=== PATIENT | male | born 1945 | race Caucasian/White ===

== ENCOUNTER 2021-08-21 13:05 | Emergency (ER) | payer OTHER ==
[~2021-08-21] VITALS: Ht 180.3 cm; Wt 86.2 kg
[2021-08-21] MEDS ORDERED: ASPIRIN81 MG PO (13:32)
[2021-08-21] MEDS ORDERED: PROZAC20 MG PO (13:33)
[2021-08-21] MEDS ORDERED: COZAAR25 MG PO (13:33)
[2021-08-21] MEDS ORDERED: LIPITOR10 MG GT (13:33)
[2021-08-21] MEDS ORDERED: OMEPRAZOLE20 MG PO (13:34)
[2021-08-21] MEDS ORDERED: PROTONIX40 MG PO (17:51)
[2021-08-21] MEDS ORDERED: CARAFATE1 GM PO (17:51)
== END 2021-08-21 18:27 | disposition home or self-care (01) ==
LOC: ED 13:05
DX: R10.13 Epigastric pain (principal); R10.11 Right upper quadrant pain; K21.9 Gastro-esophageal reflux disease without esophagitis; Z79.82 Long term (current) use of aspirin; Z79.899 Other long term (current) drug therapy
CPT/HCPCS: 74177; 76705; 80053; 81001; 83690; 84484; 85025; 96375; 99284-25; C9113; J1170; Q9967